=== PATIENT | female | born 1930 | race Caucasian/White ===

== ENCOUNTER → 2016-11-09 | Outpatient (CLI) | payer MEDICARE, OTHER ==
--- NOTE | 2016-11-09 15:18 | RAD ---
Indication pain. No history of trauma. Axial images through the left knee were obtained and reformatted in the coronal and sagittal planes. A significant soft tissue finding is not seen. An acute bony finding is not seen. There is probable bony demineralization. There are degenerative changes. This is manifested as some medial joint space compartment narrowing. There is some patellofemoral narrowing. Significant joint fluid is not suggested. IMPRESSION: Degenerative changes. Probable bony demineralization. No acute finding seen PQRS Compliance Statement: One or more of the following individualized dose reduction techniques were utilized for this examination: 1. Automated exposure control 2. Adjustment of the mA and/or kV according to patient size 3. Use of iterative reconstruction technique
== END | disposition home or self-care (01) ==
LOC: MRI 13:00
PROVIDERS: ATTEND Internal Medicine
DX: M25.562 Pain in left knee (principal); G89.29 Other chronic pain
CPT/HCPCS: 73700